=== PATIENT | female | born 1995 | race African-American/Black ===

== ENCOUNTER 2017-03-12 20:49 | Emergency (ER) | payer OTHER ==
[2017-03-12] MEDS ORDERED: Ondansetron INJ* 2 MG/ML VIAL IV ONE (21:58)
[2017-03-12] MEDS ORDERED: NS 0.9% 1000 ML* 2,000 ML IV ONE (21:58)
[2017-03-12] MEDS ORDERED: Ketorolac INJ* 30 MG/ML 1 ML VIAL IV PUSH ONE (22:01)
--- NOTE | 2017-03-12 22:01 | ED ---
Abdominal Pain/Female - HPI Summary HPI Summary: 21F presents with nausea, vomiting, and diarrhea for 3 days. She admits to body aches, weakness. patient came back from [facility] ([facility]) on Mar 05 but no one else sick from travelers of group. She denies any eating any different. She denies any abdominal pain. She has not taken anything. She denies any previous abdominal surgeries. She denies any dysuria, hematuria, flank pain, frequency, urgency, or vaginal discharge. She states she feels dehydrated. She denies any neck pain or stiffness. She denies any abnormal bleeding. - History of Current Complaint Chief Complaint: EDNauseaVomitDiarrh Stated Complaint: FEVER CHILLS Time Seen by Provider: 03/12/17 21:46 Pain Intensity: 0 Allergies/Adverse Reactions: Allergies Allergy/AdvReac Type Severity Reaction Status Date / Time Shellfish Allergy Allergy Anaphylatic Verified 03/12/17 22:20 Shock PMH/Surg Hx/FS Hx/Imm Hx Endocrine/Hematology History: Denies: Hx Anticoagulant Therapy Cardiovascular History: Denies: Hx Hypertension Infectious Disease History: No Infectious Disease History: Reports: Traveled Outside the [place] in Last 30 Days - [facility] - Family History Known Family History: Negative: Cardiac Disease - Social History Alcohol Use: None Substance Use Type: Reports: None Smoking Status (MU): Never Smoked Tobacco Review of Systems Positive: Fever Negative: Chest Pain Negative: Shortness Of Breath Positive: Vomiting, Diarrhea, Nausea. Negative: Abdominal Pain All Other Systems Reviewed And Are Negative: Yes Physical Exam Triage Information Reviewed: Yes Vital Signs On Initial Exam: Initial Vitals Temp Pulse Resp BP Pulse Ox 98.7 F 90 20 129/76 99 03/12/17 20:55 03/12/17 20:55 03/12/17 20:55 03/12/17 20:55 03/12/17 20:55 Vital Signs Reviewed: Yes Appearance: Positive: Well-Appearing Skin: Positive: Warm, Dry Head/Face: Positive: Normal Head/Face Inspection Eyes: Positive: Normal, EOMI, WALT, Conjunctiva Clear ENT: Positive: Normal ENT inspection, Pharynx normal, TMs normal Neck: Positive: Supple, Nontender, No Lymphadenopathy Respiratory/Lung Sounds: Positive: Clear to Auscultation, Breath Sounds Present Cardiovascular: Positive: Normal, RRR Abdomen Description: Positive: Nontender, Soft Bowel Sounds: Positive: Present - Marsha Coma Scale Coma Scale Total: 15 Diagnostics - Vital Signs Vital Signs Temp Pulse Resp BP Pulse Ox 03/12/17 21:44 98.7 F 81 16 124/69 98 03/12/17 20:55 98.7 F 90 20 129/76 99 - Laboratory Result Diagrams: 03/12/17 22:37 03/12/17 22:37 Lab Statement: Any lab studies that have been ordered have been reviewed, and results considered in the medical decision making process. Abdominal Pain Fem Course/Dx - Course Course Of Treatment: 21F presents with nausea, vomiting, and diarrhea for 3 days. She admits to body aches, weakness. patient came back from [facility] ([facility] ) on Mar 05 but no one else sick from travelers of group. She denies any eating any different. She denies any abdominal pain. She has not taken anything. She denies any previous abdominal surgeries. on exam abd soft nontender. labs wbc 2.8. discussed with dr hankins. case with nursing criteria does get flagged for ebola but believe unlikely. told to follow up with Jose. patient understands and agrees with plan. - Diagnoses Differential Diagnosis: Positive: Urinary Tract Infection, Other - gastroenteritis, flu Provider Diagnoses: Nausea vomiting and diarrhea Discharge - Discharge Plan Condition: Good Disposition: HOME Prescriptions: Ondansetron ODT TAB* [Zofran 4 MG Odt TAB*] 4 mg PO Q6H PRN #20 tab.odt PRN Reason: Nausea Patient Education Materials: Acute Nausea and Vomiting (ED) Referrals: [facility] [Primary Care Provider] - Additional Instructions: Can take Zofran every 6 hours as needed for nausea Drink small amounts of fluid as tolerated When able to eat follow BRAT diet: Bananas, rice, applesauce, toast Take ibuprofen or Tylenol for pain as needed every 6 hours Follow up with jose within 5 days Return to ED if develop severe abdominal pain, neck stiffness, or any new or worsening symptoms
[2017-03-12 22:49] LABS: Hematocrit 34 % (35-47); Hemoglobin 11.1 g/dl (12.0-16.0); Mean Corpuscular HGB Conc 33 g/dl (31-36); Mean Corpuscular Hemoglobin 28 pg (27-31); Mean Corpuscular Volume 83 fL (80-97); Mean Platelet Volume 8 um3 (7.4-10.4); Red Blood Count 4.05 10^6/ul (4.0-5.4); Red Cell Distribution Width 14 % (10.5-15); White Blood Count 2.9 10^3/ul (3.5-10.8)
[2017-03-12 22:50] LABS: Add Diff/Slide Review? Slide Review Added; Comments Flag Yes
[2017-03-12 23:02] LABS: ALT 13 U/L (7-52); AST 24 U/L (13-39); Albumin 4.3 g/dL (3.2-5.2); Alkaline Phosphatase 51 U/L (34-104); Anion Gap 5 mmol/L (2-11); BUN/Creatinine Ratio 6.2 (8-20); Blood Urea Nitrogen 5 mg/dL (6-24); CO2 Carbon Dioxide 24 mmol/L (22-32); Calcium 9.3 mg/dL (8.6-10.3); Chloride 106 mmol/L (101-111); EGFR African American 117.1 (>60); EGFR Non-African American 91.1 (>60); Globulin 2.8 g/dL (2-4); Glucose 96 mg/dL (70-100); Lipase 17 U/L (11.0-82.0); Potassium 3.3 mmol/L (3.5-5.0); Sodium 135 mmol/L (133-145); Total Protein 7.1 g/dL (6.4-8.9); Urine Bacteria Absent (Absent); Urine Bilirubin Negative (Negative); Urine Glucose Negative (Negative); Urine Nitrite Negative (Negative)
[2017-03-13] MEDS ORDERED: Ondansetron ODT TAB* 4 MG PO ONE (00:12)
[2017-03-13 00:21] VITALS: BP 116/70
== END 2017-03-13 00:49 | disposition home or self-care (01) ==
LOC: ED 20:49
DX: R11.2 Nausea with vomiting, unspecified (principal); R19.7 Diarrhea, unspecified
CPT/HCPCS: 36415; 80053; 81003; 81015; 83690; 84702; 85025; 86141; 96374; 96375; 99283; A9270-GY; J1885; J2405

== ENCOUNTER 2018-03-01 00:02 | Emergency (ER) | payer OTHER ==
--- NOTE | 2018-03-01 00:45 | ED ---
Headache - HPI Summary HPI Summary: 22 female presents ER with complaints of a headache Began a couple hours ago. Patient states than left side and was associated with tinnitus for a few seconds while at home. Patient states she went to sleep and woke up and it was worse. States it is sometimes sharp however most the time as dull and aching in the left side. Did experience some blurred vision in the left eye however has since resolved. Tenderness also resolved and only last a few seconds. Admits having headaches in the past. Admits to not drinking enough for today. Admits to being stressed out. Denies any drug or alcohol use. No medical problems. No medications. Did take Tylenol which gives some relief from headache. Denies weakness, numbness, tingling, chest pain or trouble breathing. Denies nausea or vomiting or abdominal pain. No head trauma or injury. Family history of heart problems per patient. No neck stiffness or neck pain. Denies significant photophobia. Nothing makes it better or worse. Has not been sick or congested recently. - History Of Current Complaint Chief Complaint: EDHeadache Stated Complaint: HEADACHE Time Seen by Provider: 03/01/18 00:16 Hx Obtained From: Patient Onset/Duration: Sudden Onset, Started hours ago, Resolved - Improved some after taking Tylenol Initially Headache Was: Initial Pain Scale(0-10)= Currently Pain Is: Current Pain Scale(0-10)= - 74 Timing: Constant Character: Sharp, Dull, Throbbing Location of Headache: Parietal - Left side Radiates to: none Aggravating Factor: Nothing Allevating Factors: Nothing - Tylenol Associated Signs And Symptoms: Negative - Risk Factors SAH Risk Factors: -Djiboutian Meningitis Risk Factors: Negative SDH Risk Factors: Negative Temporal Arteritis Risk Factors: Female - Allergies/Home Medications Allergies/Adverse Reactions: Allergies Allergy/AdvReac Type Severity Reaction Status Date / Time MS Shellfish Allergy Allergy Anaphylatic Verified 03/12/17 22:20 [Shellfish Allergy] Shock Home Medications: Home Medications Pristiq 100 mg PO DAILY 03/01/18 [History Confirmed 03/01/18] PMH/Surg Hx/FS Hx/Imm Hx Endocrine/Hematology History: Denies: Hx Anticoagulant Therapy, Hx Blood Disorders Cardiovascular History: Denies: Hx Hypertension - Surgical History Surgery Procedure, Year, and Place: None - Immunization History Immunizations Up to Date: Yes Infectious Disease History: No Infectious Disease History: Denies: Traveled Outside the [place] in Last 30 Days - Family History Known Family History: Negative: Cardiac Disease - Social History Alcohol Use: None Substance Use Type: Reports: None Smoking Status (MU): Never Smoked Tobacco Review of Systems Constitutional: Negative Positive: Blurred Vision - left eye however improved it only lasts seconds Positive: Other - tinnitus left ear however improved and only lasts seconds Cardiovascular: Negative Respiratory: Negative Gastrointestinal: Negative Musculoskeletal: Negative Skin: Negative Positive: Headache All Other Systems Reviewed And Are Negative: Yes Physical Exam Triage Information Reviewed: Yes Vital Signs On Initial Exam: Initial Vitals Temp Pulse Resp BP Pulse Ox 97.9 F 92 18 134/88 99 03/01/18 00:03/01/18 00:03/01/18 00:03/01/18 00:03/01/18 00:09 Vital Signs Reviewed: Yes Appearance: Positive: Well-Appearing, No Pain Distress, Well-Nourished Skin: Positive: Warm, Skin Color Reflects Adequate Perfusion, Dry, Other - Normal skin turgor. Negative: Cold, Numb, Pale Head/Face: Positive: Normal Head/Face Inspection, Other - No hematoma raccoon eyes or gunn signs. Negative: Temporal Artery Tenderness, TMJ Tenderness, Scalp Eyes: Positive: Normal, EOMI, WALT, Conjunctiva Clear ENT: Positive: Normal ENT inspection, Pharynx normal, TMs normal, Uvula midline. Negative: Nasal congestion, Nasal drainage, TM dull, TM red, Sinus tenderness Dental: Negative: Percussion Tenderness @, Cervical Lymphadenopathy Neck: Positive: Supple, Nontender, No Lymphadenopathy Respiratory/Lung Sounds: Positive: Clear to Auscultation, Breath Sounds Present. Negative: Rales, Rhonchi, Wheezes Cardiovascular: Positive: Normal, RRR, Pulses are Symmetrical in both Upper and Lower Extremities. Negative: Murmur, Rub Abdomen Description: Positive: Nontender, Soft Bowel Sounds: Positive: Present Musculoskeletal: Positive: Normal, Strength/ROM Intact. 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 No other facial drooping or acute patient drooping, Ataxic Gait - Normal, Speech Normal. Negative: Slurred Speech Psychiatric: Positive: Normal - Marsha Coma Scale Best Eye Response: 4 - Spontaneous Best Motor Response: 6 - Obeys Commands Best Verbal Response: 5 - Oriented Coma Scale Total: 15 Diagnostics - Vital Signs Vital Signs Temp Pulse Resp BP Pulse Ox 03/01/18 00:09 97.9 F 92 18 134/88 99 - Laboratory Lab Statement: Any lab studies that have been ordered have been reviewed, and results considered in the medical decision making process. Re-Evaluation - Re-Evaluation First Eval Re-Evaluation Time: 01:48 Change: Improved - feeling much better, symptom free Headache Course/Dx - Course Course Of Treatment: patient tookTylenol with relief prior to arrival. Given Toradol while in ER. Had significant relief and was sypmtom free. Also drank water as patient did not have much drink today. No concern for alcohol or drug use. Patient seems better stress and suffering from a migraine. Increase fluid intake continue ibuprofen Tylenol as needed follow-up primary care provider. No recent trauma or injury. No concerning findings on exam. Normal neuro exam. Aware of worsening signs and symptoms watch out for and to return to the ER if occur. Patient agrees and understands. Much improved. Concern for other etiology at this time due to physical exam findings, symptoms and vital signs. - Diagnoses Differential Diagnosis/HQI/PQRI: Migraine, Tension Headache Provider Diagnoses: Migraine Discharge - Sign-Out/Discharge Documenting (check all that apply): Patient Departure - Discharge Plan Condition: Improved Disposition: HOME Patient Education Materials: Migraine Headache (ED), Acute Headache (ED) [facility] - Additional Instructions: Follow-up with primary care provider tomorrow to ensure improvement. Increase fluid intake and rest. Continue ibuprofen and Tylenol alternating as discussed. For pain. Any new worsening symptoms such as increased pain, vision changes, vomiting, numbness and tingling or weakness please seek medical attention and return to ER as discussed. - Billing Disposition and Condition Condition: IMPROVED Disposition: Home
[2018-03-01] MEDS ORDERED: Ketorolac INJ* 30 MG/ML 1 ML VIAL IM ONE (01:00)
[2018-03-01 02:01] VITALS: BP 114/80
== END 2018-03-01 01:59 | disposition home or self-care (01) ==
LOC: ED 00:02
DX: G43.909 Migraine, unspecified, not intractable, without status migrainosus (principal); Z82.49 Family history of ischemic heart disease and other diseases of the circulatory system
CPT/HCPCS: 96372; 99282; J1885

== ENCOUNTER 2019-04-04 23:17 | Emergency (ER) | payer OTHER ==
[2019-04-05 03:02] LABS: ABS Eosinophils 0.3 10^3/ul (0-0.6); ABS Lymphocytes 3.1 10^3/ul (1.0-4.8); ABS Monocytes 0.6 10^3/ul (0-0.8); ABS Neutrophils 2.7 10^3/ul (1.5-7.7); Hematocrit 33 % (35-47); Hemoglobin 11.1 g/dL (12.0-16.0); Lymphocyte % 45.9 %; Mean Corpuscular HGB Conc 34 g/dL (31-36); Mean Corpuscular Hemoglobin 28 pg (27-31); Mean Corpuscular Volume 82 fL (80-97); Mean Platelet Volume 8.7 fL (7.4-10.4); Nucleated Red Blood Cells % 0.1; Platelet Count 283 10^3/uL (150-450); Red Blood Count 4.03 10^6 /uL (3.70-4.87); Red Cell Distribution Width 14 % (10-15); White Blood Count 6.7 10^3/uL (3.5-10.8)
[2019-04-05 03:19] LABS: Urine Appearance Clear; Urine Bilirubin Negative (Negative); Urine Blood Negative (Negative); Urine Color Straw; Urine Glucose Negative (Negative); Urine Ketones Trace (Negative); Urine Nitrite Negative (Negative); Urine Protein Negative (Negative); Urine Specific Gravity 1.005 (1.010-1.030); Urine Urobilinogen Negative (Negative)
[2019-04-05 03:22] LABS: ALT 8 U/L (7-52); AST 19 U/L (13-39); Albumin 4.2 g/dL (3.2-5.2); Albumin/Globulin Ratio 1.5 (1-3); Alkaline Phosphatase 57 U/L (34-104); Anion Gap 4 mmol/L (2-11); BUN/Creatinine Ratio 14.9 (8-20); Blood Urea Nitrogen 11 mg/dL (6-24); CO2 Carbon Dioxide 29 mmol/L (22-32); Calcium 9.4 mg/dL (8.6-10.3); Chloride 105 mmol/L (101-111); EGFR African American 119.9 (>60); EGFR Non-African American 99.1 (>60); Globulin 2.8 g/dL (2-4); Glucose 86 mg/dL (70-100); Sodium 138 mmol/L (135-145)
[2019-04-05 03:27] LABS: Alcohol < 10 mg/dL (<10)
[2019-04-05 03:29] LABS: HCG Pregnancy < 0.60 mIU/mL
[2019-04-05 03:42] LABS: TSH (Thyroid Stimulating Horm) 3.78 mcIU/mL (0.34-5.60)
--- NOTE | 2019-04-05 04:16 | ED ---
Headache - History Of Current Complaint Chief Complaint: EDDizziness Stated Complaint: DIZZY PER PT Time Seen by Provider: 04/05/19 02:27 - Allergies/Home Medications Allergies/Adverse Reactions: Allergies Allergy/AdvReac Type Severity Reaction Status Date / Time lamotrigine [From Lamictal] Allergy Rash Verified 04/04/19 23:23 shellfish derived Allergy Anaphylatic Verified 04/04/19 23:23 Shock Home Medications: Home Medications Gabapentin CAP(*) [Neurontin 300 CAP(*)] 300 mg PO DAILY 04/05/19 [History Confirmed 04/05/19] hydrOXYzine HCL TAB* [Atarax 10 MG TAB*] 10 mg PO TID PRN 04/05/19 [History Confirmed 04/05/19] PMH/Surg Hx/FS Hx/Imm Hx Endocrine/Hematology History: Denies: Hx Anticoagulant Therapy, Hx Blood Disorders Cardiovascular History: Denies: Hx Hypertension - Surgical History Surgery Procedure, Year, and Place: None Infectious Disease History: No Infectious Disease History: Denies: Traveled Outside the [place] in Last 30 Days - Family History Known Family History: Negative: Cardiac Disease - Social History Alcohol Use: None Substance Use Type: Reports: None Smoking Status (MU): Never Smoked Tobacco Review of Systems All Other Systems Reviewed And Are Negative: Yes Physical Exam Triage Information Reviewed: Yes Vital Signs On Initial Exam: Initial Vitals Temp Pulse Resp BP Pulse Ox 97.6 F 85 16 126/90 100 04/04/19 23:20 04/04/19 23:20 04/04/19 23:20 04/04/19 23:20 04/04/19 23:20 Vital Signs Reviewed: Yes Diagnostics - Vital Signs Vital Signs Temp Pulse Resp BP Pulse Ox 04/05/19 02:17 84 13 122/67 100 04/05/19 02:00 86 13 99 04/05/19 01:47 86 26 122/75 100 04/05/19 01:17 89 19 123/90 100 04/05/19 01:00 77 13 100 04/05/19 00:53 78 15 100 04/05/19 00:44 98.2 F 78 16 137/93 100 04/04/19 23:20 97.6 F 85 16 126/90 100 - Laboratory Lab Results: Lab Results 09/13/19 09/13/19 09/13/19 Range/Units 02:55 02:55 02:55 WBC 6.7 (3.5-10.8) 10^3/uL RBC 4.03 (3.70-4.87) 10^6 /uL Hgb 11.1 L (12.0-16.0) g/dL Hct 33 L (35-47) % MCV 82 (80-97) fL MCH 28 (27-31) pg MCHC 34 (31-36) g/dL RDW 14 (10-15) % Plt Count 283 (150-450) 10^3/uL MPV 8.7 (7.4-10.4) fL Neut % (Auto) 40.5 % Lymph % (Auto) 45.9 % [place] % (Auto) 8.9 % Eos % (Auto) 4.0 % Baso % (Auto) 0.7 % Absolute Neuts (auto) 2.7 (1.5-7.7) 10^3/ul Absolute Lymphs (auto) 3.1 (1.0-4.8) 10^3/ul Absolute Monos (auto) 0.6 (0-0.8) 10^3/ul Absolute Eos (auto) 0.3 (0-0.6) 10^3/ul Absolute Basos (auto) 0.0 (0-0.2) 10^3/ul Absolute Nucleated RBC 0.0 10^3/ul Nucleated RBC % 0.1 Sodium 138 (135-145) mmol/L Potassium 5.0 (3.5-5.0) mmol/L Chloride 105 (101-111) mmol/L Carbon Dioxide 29 (22-32) mmol/L Anion Gap 4 (2-11) mmol/L BUN 11 (6-24) mg/dL Creatinine 0.74 (0.51-0.95) mg/dL Est GFR ( Amer) 119.9 (>60) Est GFR (Non-Af Amer) 99.1 (>60) BUN/Creatinine Ratio 14.9 (8-20) Glucose 86 (70-100) mg/dL Lactic Acid 0.6 (0.5-2.0) mmol/L Calcium 9.4 (8.6-10.3) mg/dL Total Bilirubin 0.30 (0.2-1.0) mg/dL AST 19 (13-39) U/L ALT 8 (7-52) U/L Alkaline Phosphatase 57 (34-104) U/L Troponin I 0.00 (<0.04) ng/mL Total Protein 7.0 (6.4-8.9) g/dL Albumin 4.2 (3.2-5.2) g/dL Globulin 2.8 (2-4) g/dL Albumin/Globulin Ratio 1.5 (1-3) TSH 3.78 (0.34-5.60) mcIU/mL Beta HCG, Quant < 0.60 mIU/mL Urine Color Urine Appearance Urine pH (5-9) Ur Specific [place] (1.010-1.030) Urine Protein (Negative) Urine Ketones (Negative) Urine Blood (Negative) Urine Nitrate (Negative) Urine Bilirubin (Negative) Urine Urobilinogen (Negative) Ur Leukocyte Esterase (Negative) Urine Glucose (Negative) Serum Alcohol < 10 (<10) mg/dL 04/05/19 Range/Units 03:09 WBC (3.5-10.8) 10^3/uL RBC (3.70-4.87) 10^6 /uL Hgb (12.0-16.0) g/dL Hct (35-47) % MCV (80-97) fL MCH (27-31) pg MCHC (31-36) g/dL RDW (10-15) % Plt Count (150-450) 10^3/uL MPV (7.4-10.4) fL Neut % (Auto) % Lymph % (Auto) % [place] % (Auto) % Eos % (Auto) % Baso % (Auto) % Absolute Neuts (auto) (1.5-7.7) 10^3/ul Absolute Lymphs (auto) (1.0-4.8) 10^3/ul Absolute Monos (auto) (0-0.8) 10^3/ul Absolute Eos (auto) (0-0.6) 10^3/ul Absolute Basos (auto) (0-0.2) 10^3/ul Absolute Nucleated RBC 10^3/ul Nucleated RBC % Sodium (135-145) mmol/L Potassium (3.5-5.0) mmol/L Chloride (101-111) mmol/L Carbon Dioxide (22-32) mmol/L Anion Gap (2-11) mmol/L BUN (6-24) mg/dL Creatinine (0.51-0.95) mg/dL Est GFR ( Amer) (>60) Est GFR (Non-Af Amer) (>60) BUN/Creatinine Ratio (8-20) Glucose (70-100) mg/dL Lactic Acid (0.5-2.0) mmol/L Calcium (8.6-10.3) mg/dL Total Bilirubin (0.2-1.0) mg/dL AST (13-39) U/L ALT (7-52) U/L Alkaline Phosphatase (34-104) U/L Troponin I (<0.04) ng/mL Total Protein (6.4-8.9) g/dL Albumin (3.2-5.2) g/dL Globulin (2-4) g/dL Albumin/Globulin Ratio (1-3) TSH (0.34-5.60) mcIU/mL Beta HCG, Quant mIU/mL Urine Color Straw Urine Appearance Clear Urine pH 7.0 (5-9) Ur Specific [place] 1.005 L (1.010-1.030) Urine Protein Negative (Negative) Urine Ketones Trace A (Negative) Urine Blood Negative (Negative) Urine Nitrate Negative (Negative) Urine Bilirubin Negative (Negative) Urine Urobilinogen Negative (Negative) Ur Leukocyte Esterase Negative (Negative) Urine Glucose Negative (Negative) Serum Alcohol (<10) mg/dL Result Diagrams: 04/05/19 02:55 04/05/19 02:55 Lab Statement: Any lab studies that have been ordered have been reviewed, and results considered in the medical decision making process. Headache Course/Dx - Course Course Of Treatment: patient with dizziness resolved. no symptoms at this time. patient discharged to home. follow up with PCP. follow up sooner for any worsening symptoms. - Diagnoses Provider Diagnoses: Dizziness Is Visit Related: No Discharge ED - Sign-Out/Discharge Documenting (check all that apply): Patient Departure - discharge Patient Received Moderate/Deep Sedation with Procedure: No - Discharge Plan Condition: Stable Disposition: HOME Patient Education Materials: Dizziness (ED) Referrals: Fide Oneil MD [Primary Care Provider] - 3 Days Additional Instructions: Please follow up with your primary care physician within three days. Please return to ED for any new or worsening symptoms. - Billing Disposition and Condition Condition: STABLE Disposition: Home - Attestation Statements Document Initiated by Scribe: Yes Documenting Scribe: Nanda Jade Provider For Whom Garett is Documenting (Include Credential): dr leslie Yuen Attestation: INanda , scribed for dr nelson on 04/05/19 at 0602. Scribe Documentation Reviewed: Yes Provider Attestation: The documentation as recorded by the Nanda yuen accurately reflects the service I personally performed and the decisions made by dr leslie orourke Status of Scribe Document: Viewed
[2019-04-05 04:22] VITALS: BP 116/73
== END 2019-04-05 04:22 | disposition home or self-care (01) ==
LOC: ED 23:17
DX: R42 Dizziness and giddiness (principal); Z79.899 Other long term (current) drug therapy; Z88.8 Allergy status to other drugs, medicaments and biological substances
CPT/HCPCS: 36415; 80053; 80320; 81003; 83605; 84443; 84484; 84702; 85025; 93005; 99283; G0480